=== PATIENT | male | born 1960 | race Caucasian/White ===

== ENCOUNTER 2017-08-15 14:51 | Emergency (ER) | payer BC, OTHER ==
[2017-08-15] MEDS ORDERED: 0.9 % SODIUM CHLORIDE 1,000 ML BAG IV ONE (14:56)
[2017-08-15] MEDS ORDERED: ONDANSETRON HCL IV 4 MG/2 ML VIAL IV ONE (14:56)
--- NOTE | 2017-08-15 15:02 | Emergency Department Record ---
History of Present Illness - General Chief complaint: Flank Pain Stated complaint: KIDNEY PAIN Time Seen by Provider: 08/15/17 14:56 Source: Patient Mode of Arrival: Ambulatory Limitations: No limitations - History of Present Illness Initial comments: 56 yo male presents with left flank pain that started at 3am. The pain has been coming and going since then. No fevers. No vomiting. No rash. The pain is sharp. It comes and goes regarding it's intensity. He has a history of renal stones in the past. No history of obstructing stones. No history of kidney, bladder, ureteral surgery. No diarrhea. No blood in the stools. MD Complaint: Other (Left flank pain) -: Hour(s) (12) Location: Abdomen, Left flank Radiation: LUQ Severity: Moderate Quality: Aching, Sharp, Stabbing Consistency: Intermittent Improves with: None Worsens with: None Other Reports: Denies other symptoms - Related Data Home Medications Medication Instructions Recorded Confirmed Last Taken Atorvastatin Calcium [Lipitor] 80 mg PO DAILY 08/15/17 08/15/17 Unknown Duloxetine HCl [Cymbalta] 20 mg PO DAILY 08/15/17 08/15/17 Unknown Liraglutide [Victoza 3-Corby] 0.6 mg SQ DAILY 08/15/17 08/15/17 Unknown Metformin HCl 500 mg PO DAILY 08/15/17 08/15/17 Unknown Omeprazole 20 mg PO DAILY 08/15/17 08/15/17 Unknown Pioglitazone HCl [Actos] 45 mg PO DAILY 08/15/17 08/15/17 Unknown Telmisartan [Micardis] 80 mg PO DAILY 08/15/17 08/15/17 Unknown Tramadol HCl 50 mg PO Q3HR 08/15/17 08/15/17 Unknown Previous Rx's Medication Instructions Recorded Hydrocodone/Acetaminophen [Bazine 1 each PO Q6H #15 tablet 08/15/17 5-325 Tablet] Tamsulosin HCl [Flomax] 0.4 mg PO DAILY #10 cap.er.24h 08/15/17 Allergies Allergy/AdvReac Type Severity Reaction Status Date / Time No Known Drug Allergies Allergy Verified 08/15/17 15:08 Review of Systems Constitutional: Denies: Chills, Fever, Malaise, Weakness Eyes: Denies: Eye discharge ENT: Denies: Congestion, Throat pain Respiratory: Denies: Cough, Dyspnea, Hemoptysis, Stridor, Wheezes Cardiovascular: Denies: Chest pain, Syncope Endocrine: Denies: Fatigue Gastrointestinal: Reports: As per HPI, Abdominal pain, Nausea. Denies: Constipation, Diarrhea, Hematemesis, Hematochezia, Melena, Vomiting Genitourinary: Denies: Dysuria, Frequency, Hematuria Musculoskeletal: Reports: As per HPI, Back pain. Denies: Arthralgia Skin: Denies: Bruising, Change in color, Rash Neurological: Denies: Headache, Numbness, Weakness Psychiatric: Denies: Anxiety Hematological/Lymphatic: Denies: Anemia, Blood Clots, Easy bleeding, Easy bruising, Swollen glands Physical Exam - General General Appearance: Alert, Oriented x3, Cooperative, No acute distress - Head Head exam: Normal inspection - Eye Eye exam: Normal appearance, PERRL. negative: Conjunctival injection, Scleral icterus - ENT ENT exam: Normal exam, Mucous membranes moist, Normal external ear exam, Normal orophraynx Ear exam: Normal external inspection Nasal Exam: Normal inspection Mouth exam: Normal external inspection Teeth exam: Normal inspection Throat exam: Normal inspection - Neck Neck exam: Normal inspection, Full ROM. negative: Tenderness - Respiratory Respiratory exam: Normal lung sounds bilaterally. negative: Respiratory distress - Cardiovascular Cardiovascular Exam: Regular rate, Normal rhythm, Normal heart sounds - GI/Abdominal GI/Abdominal exam: Soft. negative: Distended, Guarding, Rebound, Rigid, Tenderness - Rectal Rectal exam: Deferred - exam: Deferred - Extremities Extremities exam: Normal inspection - Back Back exam: Reports: Normal inspection. Denies: CVA tenderness (R), CVA tenderness (L), Paraspinal tenderness, Vertebral tenderness - Neurological Neurological exam: Alert, Oriented X3 - Psychiatric Psychiatric exam: Normal affect, Normal mood. negative: Agitated, Anxious - Skin Skin exam: Dry, Intact, Normal color, Warm Course - Reevaluation(s) Reevaluation #1: 08/15/17 15:01 2012 Record reviewed demonstrating bilateral stones on CT, active R sided 3mm stone. 08/15/17 15:37 No acute changes on the CBC The UA demonstrates Blood. N-LE- 08/15/17 15:50 The UA is negative for any infection 08/15/17 16:[address] demonstrates a 3.5 distal left ureteral stone 08/15/17 16:04 No acute changes on the CMP Medical Decision Making - Lab Data Result diagrams: 08/15/17 15:10 08/15/17 15:10 Disposition Disposition: Discharge Clinical Impression: Renal colic on left side Disposition: Home, Self-Care Condition: (1) Good Instructions: Renal Colic (ED) Additional Instructions: Strain your urine Return or be seen if you have uncontrolled pain, fever, or any new concerns Prescriptions: Hydrocodone/Acetaminophen [Bazine 5-325 Tablet] 1 each PO Q6H #15 tablet Tamsulosin HCl [Flomax] 0.4 mg PO DAILY #10 cap.er.24h Referrals: ARJUN TATE M.D. [MEDICAL DOCTOR] - [facility] [Provider Group] Forms: Patient Portal Access Time of Disposition: 16:07 Quality - Quality Measures Quality Measures: N/A - Blood Pressure Screening Does Patient Have Any of the Following: Active Dx of HTN Blood Pressure Classification: Hypertensive Reading Systolic Measurement: 141 Diastolic Measurement: 79 Screening for High Blood Pressure: Patient Exclusion, Hx of HTN [G9744]
[2017-08-15 15:29] LABS: URINE APPEARANCE SL CLOUDY; URINE BILIRUBIN NEGATIVE (NEGATIVE); URINE BLOOD LARGE (NEGATIVE); URINE COLOR YELLOW; URINE GLUCOSE (UA) NEGATIVE (NEGATIVE); URINE KETONE NEGATIVE (NEGATIVE); URINE LEUKOCYTE ESTERASE NEGATIVE (NEGATIVE); URINE NITRITE NEGATIVE (NEGATIVE); URINE PROTEIN NEGATIVE (NEGATIVE); URINE UROBILINOGEN 0.2 E.U./dL (0.20 - 1.00)
[2017-08-15 15:30] LABS: BASO % 0.7 % (0-6); EOS % 1.6 % (0-6); HEMATOCRIT 42.2 % (42.0-52.0); HEMOGLOBIN 13.8 gm/dl (14.0-18.0); LYMPH % 20.8 % (16-45); MEAN CELL VOLUME 90.4 fl (81-97); MEAN CORPUSCULAR HGB CONC 32.7 g/dl (32-36); MONO % 9.9 % (0-9); PLATELET COUNT 303 K/uL (130-400); RED BLOOD COUNT 4.67 M/uL (4.40-5.70); RED CELL DISTRIBUTION WIDTH 13.3 % (11.5-14.5); WHITE BLOOD COUNT W/O DIFF 8.1 K/uL (4.2-12.2)
[2017-08-15 15:34] LABS: MEAN CORPUSCULAR HEMOGLOBIN 29.5 pg (27-33)
[2017-08-15 15:44] LABS: URINE BACTERIA NONE SEEN; URINE EPITHELIAL CELLS 0 - 2 (FEW); URINE WBC NONE SEEN (0-2/hpf)
[2017-08-15 15:53] LABS: ALBUMIN 4.5 g/dL (4.0-5.0); ALKALINE PHOSPHATASE 79 U/L (40-129); ALT/SGPT 24 U/L (<41); AST/SGOT 21 U/L (10.0-50.0); BLOOD UREA NITROGEN 17 mg/dL (6-20); CREATININE 0.8 mg/dL (0.7-1.2); EST GLOMERULAR FILTRATION RATE > 60 mL/min; GLUCOSE,RANDOM 141 mg/dL (74-109); LIPASE 18 U/L (13-60); TOTAL PROTEIN 7.4 g/dL (6.6-8.7)
[2017-08-15 15:54] LABS: BILIRUBIN,DIRECT < 0.2 mg/dL (0-0.3)
[2017-08-15] MEDS ORDERED: TAMSULOSIN HCL 0.4 MG CAP.ER.24H PO ONE (16:03)
--- NOTE | 2017-08-16 10:57 | CT SCAN REPORT ---
DATE: 08/15/2017. EXAM: CT SCAN OF THE ABDOMEN AND PELVIS. HISTORY: The patient has a history of left lower abdominal pain. TECHNIQUE: Serial axial CT scan of the abdomen and pelvis was performed at 3.75 mm intervals from the dome of the diaphragm down to the pubic symphysis without the use of intravenous or oral contrast. COMPARISON: CT scan of the abdomen and pelvis dated 03/05/2013 is provided. FINDINGS: The lung windows of the lung bases demonstrate no CT evidence of a focal infiltrate or pleural effusion. The visualized heart size and contour is within normal limits. The liver demonstrates diffuse fatty infiltration. Size and contour of the liver is within normal limits. No focal hepatic lesions are identified. The visualized spleen, pancreas, bilateral adrenal glands, and gallbladder appear unremarkable. There is a nonobstructive 6.0 mm calculus within the midpole of the right kidney. There is mild left-sided hydronephrosis and hydroureter. There is a partially obstructing 3.5 mm calculus within the distal left ureter, immediately proximal to the ureterovesical junction. Punctate, nonobstructive calculi are noted within the superior and inferior poles of the left kidney. Small exophytic cyst at the superior pole of the left kidney is unchanged with respect to the prior CT scan. The contour and caliber of the noncontrasted abdominal aorta is within normal limits. There is no CT evidence of retroperitoneal, pelvic, or inguinal lymphadenopathy. Nonspecific subcentimeter lymph nodes are identified within the bilateral inguinal chain. These may be reactive. There is a 1.6 cm exophytic structure at the inferior pole of the right kidney which appears slightly larger than on the prior examination. This has CT units of 25 suggesting possible proteinaceous cyst. If there is further clinical concern, then an MRI of the kidneys can be obtained for further evaluation. The bowel gas pattern is nonspecific and nonobstructive. There are numerous colonic diverticula without CT evidence of diverticulitis. The appendix is clearly visualized, and there is no CT evidence of appendicitis. There is no CT evidence of free intraperitoneal fluid or free intraperitoneal air. Bone windows demonstrate no CT evidence of a fracture or dislocation of the visualized osseous structures of the abdomen or pelvis. IMPRESSION: 1. A PARTIALLY OBSTRUCTING 3.5 MM CALCULUS IS NOTED WITHIN THE DISTAL LEFT URETER DISCUSSED ABOVE. 2. DIFFUSE HEPATIC STEATOSIS. 3. COLONIC DIVERTICULOSIS WITHOUT CT EVIDENCE OF DIVERTICULITIS. JOB NUMBER: [id number] MTDD
== END 2017-08-15 16:31 | disposition home or self-care (01) ==
LOC: ER 14:51
DX: N20.2 Calculus of kidney with calculus of ureter (principal); I10 Essential (primary) hypertension; Z87.442 Personal history of urinary calculi
CPT/HCPCS: 99284 ×2; 96374; 83690; 85025; 80076; 80048; 81001; 74176; J2405; J7030